=== PATIENT | male | born 1965 | race Caucasian/White ===

== ENCOUNTER → 2016-12-05 15:07 | Outpatient (CLI) | payer MEDICAID ==
[~2016-12-05 15:07] MED LIST: ELIQUIS2.5 MG PO; HYDROCODONE-APA1 TAB PO; ONDANSETRON4 MG/2 M3 PO; OXYCODONE HCL5 MG PO; ZOLOFT100 MG PO
== END | disposition home or self-care (01) ==
LOC: D.LABREF 15:07
DX: M16.11 Unilateral primary osteoarthritis, right hip (principal); Z11.8 Encounter for screening for other infectious and parasitic diseases

== ENCOUNTER 2016-12-25 09:30 | Inpatient (IN) | payer MEDICAID ==
[~2016-12-25] VITALS: Ht 182.9 cm; Wt 113.6 kg
[2016-12-25 09:24] LABS: BASOPHILS 0.3 % (0.0-2.0); EOSINOPHILS 1.7 % (0-7); HEMATOCRIT 44.8 % (42.0-54.0); HEMOGLOBIN 15.3 g/dL (13.5-17.5); IMMATURE GRANULOCYTES 0.1 % (0-5); MCH 31.9 pg (26.0-34.0); MCHC 34.2 g/dL (31.0-37.0); MCV 93.3 fL (80.0-100.0); MEAN PLATELET VOLUME 9.4 fL (7.4-10.4); MONOCYTES 6.5 % (2-11); NEUTROPHILS 60.4 % (40-80); PLATELET COUNT 199 10x3/uL (130-400); RDW 12.3 % (11.5-14.5); WBC 6.9 10x3/uL (4.8-10.8)
[~2016-12-25 09:30] MED LIST changes: -ELIQUIS2.5 MG PO; -ONDANSETRON4 MG/2 M3 PO; -OXYCODONE HCL5 MG PO
[2016-12-25 09:41] LABS: CALC OSMOLALITY 280 mosm/kg (275-300); CARBON DIOXIDE 30.1 mmol/L (21.0-32.0); CHLORIDE - SERUM 104 mmol/L (98-107); GLUCOSE 102 mg/dL (74-106); POTASSIUM - SERUM 4.1 mmol/L (3.5-5.1); SODIUM 141 mmol/L (136-145); UREA NITROGEN 12 mg/dL (7-18); eGFR NON AFRICAN AMERICAN 84 mL/min (90-120)
[2016-12-25 10:01] LABS: APTT 28.4 SECONDS (22.8-39.4); INR 1.02 (0.85-1.17); PROTIME 13.3 SECONDS (11.6-15.0)
[2016-12-25 10:14] LABS: APPEARANCE CLEAR (CLEAR); BILIRUBIN NEGATIVE (NEGATIVE); COLOR YELLOW (YELLOW); GLUCOSE NEGATIVE (NEGATIVE); KETONE NEGATIVE (NEGATIVE); LEUKOCYTE ESTERASE NEGATIVE (NEGATIVE); NITRITE NEGATIVE (NEGATIVE); PROTEIN NEGATIVE (NEGATIVE); UROBILINOGEN NORMAL (NORMAL)
[2016-12-30] VITALS (13 sets, daily range): BP systolic 102–131; BP diastolic 58–89; Ht 182.9 cm; Wt 113.6 kg
--- NOTE | 2016-12-30 07:30 | NUR ---
PTS RIGHT HIP WASHED WITH HIBICLENS AND ALCOHOL PRIOR TO CHLORPREP. PEG BOARD POSITIONER USED FOR LAT. POSITION PILLOW BETWEEN ARMS
--- NOTE | 2016-12-30 10:05 | NUR ---
PT AOX4 SITTING IN BED IN ROOM WITH FAMILY. RESP EVEN AND NONLABORED LUNG SOUND CLEAR PT. DENIES NEEDS AT THIS TIME. SKIN PINK WARM AND DRY WITH GOOD TURGOR NO EDEMA CAPILLARY REFILL <3SEC ABD SOFT AND ROUNDED [id number]. BED IN LOWEST SETTING CALL LIGHT WITHIN REACH. WILL CONTINUE TO MONITOR
--- NOTE | 2016-12-30 19:15 | NUR ---
RECIEVED SHIFT REPORT. PT IS LYING IN BED. ALERT AND ORIENTED AND ABLE TO VERBALIZE NEEDS. IV IS PATENT AND FLUIDS ARE RUNNING PER ORDER. O2 @ 2 PER NASAL CANNULA. SCD'S ON. DRESSING TO RIGHT HIP C/D/I. PT STATES PAIN IS 2/10. NO NEEDS ARE VERBALIZED AT THIS TIME. WILL CONTINUE TO MONITOR. SIDE RAILS ARE UP X 2. BED IS IN LOWEST POSITION. BED ALARM IS ON FOR SAFETY. CALL LIGHT IS WITHIN REACH.
--- NOTE | 2016-12-30 20:36 | NUR ---
SHIFT ASSESSMENT COMPLETED. NIGHT MEDS GIVEN WITH NO PROBLEMS. NO NEEDS ARE VOICED. WILL MONITOR. SIDE RAILS X 2. BED LOW. BED ALARM ON. CALL LIGHT IN REACH.
[2016-12-31 01:00] VITALS: BP 109/64
[2016-12-31 05:00] VITALS: BP 102/58
[2016-12-31 05:57] LABS: BASOPHILS 0 % (0.0-2.0); EOSINOPHILS 0 % (0-7); HEMOGLOBIN 11.9 g/dL (13.5-17.5); IMMATURE GRANULOCYTES 0.2 % (0-5); LYMPHOCYTES 12.8 % (15-50); MCH 31.7 pg (26.0-34.0); MCV 93.3 fL (80.0-100.0); MEAN PLATELET VOLUME 9.1 fL (7.4-10.4); MONOCYTES 7.1 % (2-11); NEUTROPHILS 79.9 % (40-80); PLATELET COUNT 194 10x3/uL (130-400); RBC 3.75 10x6/uL (4.20-6.10); RDW 12.7 % (11.5-14.5); WBC 11.4 10x3/uL (4.8-10.8)
[2016-12-31 06:24] LABS: ALKALINE PHOSPHATASE 44 U/L (46-116); ALT (SGPT) 24 U/L (10-68); CALC OSMOLALITY 278 mosm/kg (275-300); CALCIUM 8.1 mg/dL (8.5-10.1); CARBON DIOXIDE 27.8 mmol/L (21.0-32.0); CHLORIDE - SERUM 104 mmol/L (98-107); CREATININE - SERUM 1.1 mg/dL (0.6-1.3); GLUCOSE 141 mg/dL (74-106); POTASSIUM - SERUM 4.1 mmol/L (3.5-5.1); PROTEIN - SERUM 5.7 g/dL (6.4-8.2); SODIUM 138 mmol/L (136-145); UREA NITROGEN 15 mg/dL (7-18); eGFR NON AFRICAN AMERICAN 75 mL/min (90-120)
--- NOTE | 2016-12-31 07:25 | NUR ---
PT. AOX4 AWAKE AND RESPONDS APPROPRIATELY TO VERBAL STIMULI. LUNG SOUNDS CLEAR. VS WNL. SKIN PINK WARM AND DRY WITH GOOD TURGOR NO EDEMA CAPILLARY REFILL <3 SEC. ABD SOFT AND ROUNDED BS+[id number]. BED AT LOWEST SETTING AND CALL LIGHT WITH IN REACH. PT. DENIES NEEDS AT THIS TIME. WILL CONTINUE TO MONITOR
[2016-12-31 08:00] VITALS: BP 118/75
--- NOTE | 2016-12-31 08:45 | NUR ---
PT. UP TO CHAIR VIA WALKER AND PHYSICAL THERAPY. PT. DENIES NEEDS AT THIS TIME
[2016-12-31 12:30] VITALS: BP 108/62
--- NOTE | 2016-12-31 13:20 | NUR ---
* Is the patient Alert and Oriented? Yes 0 * How many steps to enter\exit or inside your home? 5 0 * PCP Dr. Gomez 0 * Pharmacy [facility] on [address] * Preadmission Environment Home with Family 0 * ADLs Independent 0 * List name and contact numbers for known caregivers / representatives who currently or will assist patient after discharge: Ruben Xiao [phone] 0 * Additional services required to return to the preadmission environment? Yes 0 * Can the patient safely return to the preadmission environment? Yes 0 * Has this patient been hospitalized within the prior 30 days at any hospital? No 0 12/31/2016 13:20 DCP: Discharge Planning Patient Name: SHAKA CURRIE Admission Status: Elective Accout number: [id number] Admission Date: 12-30-2016 : 1965 Admission Diagnosis:UNILATERAL PRIMARY OSTEOARTHRITIS, RIGHT HIP Attending: JUSTEN Current LOS: 1 Anticipated DC Date: 01-01-2017 Planned Disposition: Outpatient PT\OT Primary Insurance: [facility] [employer]IVATE OPTIONS [facility] Discharge Planning Comments: CM met with patient to assess dc plans/needs. Patient states he lives at home with his & adult son. He reports he is independent with all ADL's & IADL's. At dc, he will return home with his family. He has chosen [facility] for outpatient physical therapy - Appt. scheduled for 01/06 @ 1300 - Rx faxed. Rolling walker will be ordered & delivered to hospital prior to discharge through [facility]. Anticipate dc tomorrow afternoon. CM will follow. Case Advocate: Kiesha Hair
[2016-12-31 16:02] VITALS: BP 102/50
--- NOTE | 2016-12-31 19:00 | NUR ---
PATIENT SUPINE IN BED WATCHING TV. HOB 40 DEGREES. AAOX4. RR EVEN AND UNLABORED. 0 S/S OF DISTRESS. DENIES PAIN AT THIS TIME. IV TO RIGHT HAND S/L WITH NO REDNESS OR SWELLING. DRESSING TO RIGHT HIP CDI. SCD'S IN ROOM BUT OFF. B/A ON. SRX2. BED LOW. CALL LIGHT WITHIN REACH.
--- NOTE | 2016-12-31 21:30 | NUR ---
ASSESSMENT COMPLETE. NIGHTTIME MEDS GIVEN. NO OTHER NEEDS AT THIS TIME.
[2016-12-31 22:09] VITALS: BP 108/50
--- NOTE | 2017-01-01 | NUR ---
TYLENOL HELD BECAUSE PATIENT SLEEPING.
[2017-01-01 01:48] VITALS: BP 99/65
[2017-01-01 04:00] VITALS: BP 113/78
[2017-01-01 05:36] LABS: BASOPHILS 0.1 % (0.0-2.0); EOSINOPHILS 1.2 % (0-7); HEMATOCRIT 33.5 % (42.0-54.0); HEMOGLOBIN 10.8 g/dL (13.5-17.5); IMMATURE GRANULOCYTES 0.2 % (0-5); LYMPHOCYTES 34.1 % (15-50); MCH 30.8 pg (26.0-34.0); MCHC 32.2 g/dL (31.0-37.0); MEAN PLATELET VOLUME 9.1 fL (7.4-10.4); MONOCYTES 7.1 % (2-11); NEUTROPHILS 57.3 % (40-80); PLATELET COUNT 169 10x3/uL (130-400); RBC 3.51 10x6/uL (4.20-6.10); RDW 13.1 % (11.5-14.5); WBC 8.7 10x3/uL (4.8-10.8)
[2017-01-01 05:41] LABS: MCV 95.4 fL (80.0-100.0)
[2017-01-01 06:14] LABS: ALKALINE PHOSPHATASE 39 U/L (46-116); ALT (SGPT) 19 U/L (10-68); BILIRUBIN - TOTAL 0.44 mg/dL (0.2-1.3); CALC OSMOLALITY 286 mosm/kg (275-300); CARBON DIOXIDE 30.8 mmol/L (21.0-32.0); CHLORIDE - SERUM 107 mmol/L (98-107); CREATININE - SERUM 1.1 mg/dL (0.6-1.3); POTASSIUM - SERUM 3.7 mmol/L (3.5-5.1); PROTEIN - SERUM 5.4 g/dL (6.4-8.2); SODIUM 144 mmol/L (136-145); UREA NITROGEN 16 mg/dL (7-18); eGFR NON AFRICAN AMERICAN 75 mL/min (90-120)
[2017-01-01 06:15] LABS: GLUCOSE 83 mg/dL (74-106)
--- NOTE | 2017-01-01 07:10 | NUR ---
AWAKE AND ALERT AT THIS TIME. SCD'S ON AND IN WORKING ORDER. BED ALARM ON AND SRX3 WITH BED IN LOWEST POSITION AND WHEELS LOCKED. CALL LIGHT IN REACH, DENIES NEEDS AT PRESENT TIME. WILL CONTINUE WITH PLAN OF CARE.
[2017-01-01] MEDS ORDERED: ELIQUIS2.5 MG PO (07:47)
[2017-01-01] MEDS ORDERED: OXYCODONE HCL5 MG PO (07:48)
[2017-01-01] MEDS ORDERED: ONDANSETRON4 MG/2 M3 PO (07:49)
--- NOTE | 2017-01-01 08:14 | NUR ---
SCHEDULED MEDCICATIONS ADMINISTERED AND ASSESSMENT PERFORMED AT THIS TIME. CALL LIGHT IN REACH, WILL CONTINUE WITH PLAN OF CARE.
--- NOTE | 2017-01-01 08:23 | NUR ---
01/01/2017 8:18 DCP: Discharge Planning Patient Name: SHAKA CURRIE Encounter No: [id number] : 1965 Primary Insurance: [employer] [place] Anticipated DC Date: 01-01-2017 Planned Disposition: Outpatient PT\OT External Planned Provider: [facility] DCP follow-up note: DC order rec'd. Patient and family in agreement with discharge plan. No changes to plan. Rolling walker will be delivered to hospital prior to dc. No other needs identified or verbalized at this time. Case management will follow and assist as needed. Kiesha Hair
[2017-01-01 08:28] VITALS: BP 105/60
--- NOTE | 2017-01-01 09:30 | NUR ---
PROVIDED PT WITH THERABAND FOR RIGHT FOOT DROP ROM SELF EXERCISE. DENIES FURTHER NEEDS. UP IN CHAIR AND CALL LIGHT IN REACH.
--- NOTE | 2017-01-01 10:55 | NUR ---
UP IN CHAIR PER PHYSICAL THERAPY AT THIS TIME. TO D/C HOME TODAY ONCE RELEASED FROM PHYSICAL THERAPY. CALL LIGHT IN REACH, WILL CONTINUE WITH PLAN OF CARE.
--- NOTE | 2017-01-01 11:46 | NUR ---
PRN OXY IR AND ZOFRAN ADMINISTERED AT THIS TIME. IV TO RIGHT WRIST D/C WITH CATH TIP INTACT. DRESSING TO RIGHT HIP CHANGED STERILY. DENIES QUESTIONS OR CONCERNS REGARDING D/C. WILL CONTINUE WITH PLAN OF CARE UNTIL PT'S RIDE HOME ARRIVES.
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
--- NOTE | 2017-01-30 12:12 | DS ---
PATIENT:SHAKA CURRIE :[birth year] MEDICAL RECORD: [id number] DISCHARGE SUMMARY ADMISSION DATE: 12/30/16 DISCHARGE DATE: 01/01/17 DATE OF ADMISSION: 12/30/2016. DATE OF DISCHARGE: 01/01/2017. ADMITTING DIAGNOSIS: Right hip degenerative joint disease. DISCHARGE DIAGNOSES: Right hip degenerative joint disease plus acute blood loss anemia. HISTORY: This is a pleasant 51-year-old gentleman with severe degenerative changes of his hip. He presents for right total hip arthroplasty. We discussed with him the options. He understood and wished to proceed. He came into the hospital and underwent a hip replacement. He tolerated the procedure well. It was felt by the 2nd, he could be discharged to home self care, continue with outpatient physical therapy, continue on anticoagulation therapy, and pain meds with the plan to see him back in the office in about 2 weeks. TRANSINT:[id number] Voice Confirmation ID: [id number] DOCUMENT ID: [id number] DAMIR SERNA MD at 1212 CC: [id number] DICTATION DATE: 01/20/17 1428 FOREPART RASPER: 01/21/17 0408 DIS IN 01/01/17 [facility] [address] [facility]
== END 2017-01-01 12:30 | disposition home or self-care (01) | DRG 470 ==
LOC: D.SDCHOLD 09:30 → D.MS 12-30 05:29 → D.SDCHOLD 12-30 07:00 → D.MS 12-30 09:47
PROVIDERS: Emergency Medicine; ADMIT Orthopaedic Surgery Sports Medicine
PROC: 0SR90JZ Replacement of Right Hip Joint with Synthetic Substitute, Open Approach (ICD-10-PCS; principal; 2016-12-30 07:00)
DX: M16.11 Unilateral primary osteoarthritis, right hip (principal); D62 Acute posthemorrhagic anemia

== ENCOUNTER → 2017-03-25 16:06 | Outpatient (CLI) | payer MEDICAID ==
[~2017-03-25 16:06] MED LIST changes: +ELIQUIS2.5 MG PO; +ONDANSETRON4 MG/2 M3 PO; +OXYCODONE HCL5 MG PO
== END | disposition home or self-care (01) ==
LOC: D.US 16:00
DX: R60.0 Localized edema (principal)